=== PATIENT | male | born 1970 | race Caucasian/White ===

== ENCOUNTER 2018-02-01 09:45 | Day surgery (SDC) | payer OTHER ==
[~2018-02-01] VITALS: Ht 170.2 cm; Wt 104.3 kg
[~2018-02-01 09:45] MED LIST: BACLOFEN20 MG PO; BUPROPION HCL150 M2 PO; CITALOPRAM HBR40 MG PO; PANTOPRAZOLE SO40 MG PO; RANITIDINE HCL300 MG PO
--- NOTE | 2018-02-01 11:14 | NUR ---
02/01/18 1114 Lonra Garcia 1048 PT ARRVIED WITH ORAL, AIRWAY IN PLACE ON 10L VIA MASK. RN DOING CHIN THRUST TO MAINTAIN AIRWAY. RESP EVEN AND UNLABORED. 1054 PT WOKE UP AND OPENED HIS MOUTH ORAL AIRWAY REMOVED. 1058 PT MORE AWAKE AND FOLLOWING COMMANDS. RESP EVEN AND UNLABORED. PT MAINTAINING AIRWAY. O2 MASK REMOVED. 1100 PT DRINKING WATER AND SITTING IN HIGH FOWLERS.
--- NOTE | 2018-02-01 13:52 | OR ---
[facility] [address] [place], [place] [address] Signed DATE OF OPERATION: 02/01/2018 SURGEON: Joao Chery MD UPPER ENDOSCOPY PREOPERATIVE DIAGNOSES: 1. Gastroesophageal reflux disease. 2. Diarrhea. POSTOPERATIVE DIAGNOSES: 1. Gxxs-qn-[id number] gastritis. 2. Small hiatal hernia. PROCEDURE: EGD with CLOtest and biopsies of the duodenum and antrum. ESTIMATED BLOOD LOSS: None. INDICATIONS: Godfrey is a 48-year-old gentleman, who has had significant trouble with acid reflux. He has been on Protonix and Zantac twice a day. He quit smoking and drinking about 30 days ago. He said that acid reflux is still bothering him. He has been trying to lose weight before he goes to bed. He also complains of generalized abdominal pain with some diarrhea. He said he had irritable bowel syndrome in the past. He does use citalopram each evening to help him relax and go to sleep. He was asked to see me with respect to the above. I gave Godfrey a pamphlet in the office on upper endoscopy and we looked at that together along with the risks including, but not limited to gas bloating, crampy abdominal pain, bleeding, perforation, requiring surgery, and missed diagnosis. He has been through colonoscopies before so he is familiar with the process. Because of his medical issues and his need for daily citalopram, we asked that an anesthesia provider help us with increased monitoring sedation with propofol that proved to be a romero decision. He had expressed understanding and wished to proceed. DESCRIPTION OF PROCEDURE: Godfrey was taken into our endoscopy suite and placed in the supine semi-recumbent position. He was given IV sedation with propofol per our nurse community health worker. A bite block was utilized for the case. The adult gastroscope was introduced and advanced all the way out into the third portion of the duodenum under direct visualization of camera Electronically Signed By: JOAO CHERY MD 02/01/18 1352 PATIENT NAME: GODFREY SANTANA OPERATIVE REPORT DATE OF : 72 REPORT #: [id number] PHYSICIAN: JOAO CHERY MD PCP: ELYSIA BUENO MD REPORT IS CONFIDENTIAL AND NOT TO BE RELEASED WITHOUT AUTHORIZATION [facility] [address] [place] [id number] Signed without difficulty. It looked fine, but we went ahead and took a biopsy because of history of diarrhea. The pyloric channel was unremarkable. His stomach showed diffuse erythematous changes consistent with [id number] gastritis. Upon retroflexion of the scope, he did have some fluid up around the GE junction, but it looks like he has a [id number] sized hiatal hernia. There was no gastric or esophageal varices. The scope was withdrawn up through the GE junction, which was compliant without stricture. Minimal disruption to his Z-line. No Perez's esophagus. No distal esophagitis. The middle and upper esophagus were unremarkable. After this, the gas was suctioned out and the gastroscope removed. Godfrey tolerated the procedure quite well. RECOMMENDATIONS: I will see Godfrey back in my office in 7 to 14 days to review his results. We might also consider a barium swallow. Joao Chery MD ALB/MODL /[id number] cc: MD Joao Foote MD Copies: ELYSIA BUENO MD, ANDREW L MD ~ Electronically Signed By: JOAO CHERY MD 02/01/18 1352 PATIENT NAME: GODFREY SANTANA MERRITT OPERATIVE REPORT DATE OF : 72 REPORT #: [id number] PHYSICIAN: JOOA CHERY MD PCP: ELYSIA BUENO MD REPORT IS CONFIDENTIAL AND NOT TO BE RELEASED WITHOUT AUTHORIZATION
== END 2018-02-01 11:30 | disposition home or self-care (01) ==
LOC: DS 09:45 → OPS 09:45 → DS 10:00 → OPS 10:00
PROVIDERS: Colon & Rectal Surgery
PROC: 0DB78ZX Excision of Stomach, Pylorus, Via Natural or Artificial Opening Endoscopic, Diagnostic (ICD-10-PCS; 2018-02-01)
PROC: 0DB98ZX Excision of Duodenum, Via Natural or Artificial Opening Endoscopic, Diagnostic (ICD-10-PCS; principal; 2018-02-01 10:00)
DX: K29.50 Unspecified chronic gastritis without bleeding (principal); K44.9 Diaphragmatic hernia without obstruction or gangrene; K21.9 Gastro-esophageal reflux disease without esophagitis; I10 Essential (primary) hypertension; F32.9 Major depressive disorder, single episode, unspecified; F41.9 Anxiety disorder, unspecified; E66.01 Morbid (severe) obesity due to excess calories; G47.33 Obstructive sleep apnea (adult) (pediatric); G89.29 Other chronic pain; Z88.0 Allergy status to penicillin; Z87.891 Personal history of nicotine dependence; Z83.79 Family history of other diseases of the digestive system; Z79.899 Other long term (current) drug therapy; Z68.36 Body mass index [BMI] 36.0-36.9, adult
CPT/HCPCS: 86677; 88305; J2704; J7120